=== PATIENT | male | born 1965 | race Caucasian/White ===

== ENCOUNTER 2017-08-29 07:52 | Day surgery (SDC) | payer OTHER ==
[2017-08-22 17:02] VITALS: BMI 27.7
[2017-08-29] MEDS ORDERED: PROPOFOL 20 ML ONE ×2 (08:11)
[2017-08-29] MEDS ORDERED: LIDOCAINE HCL/PF 2% SDV 5ML VIAL ONE (08:12)
[2017-08-29 09:35] VITALS: TEMP 97.9
[2017-08-29 10:08] VITALS: BP 127/89; PULSE 66
== END 2017-08-29 10:00 | disposition home or self-care (01) ==
LOC: FASU-ENDO 07:52
PROVIDERS: ATTEND Internal Medicine Gastroenterology
PROC: 0DJD8ZZ Inspection of Lower Intestinal Tract, Via Natural or Artificial Opening Endoscopic (ICD-10-PCS; principal; 2017-08-29 09:05)
DX: F12.11 Cannabis abuse, in remission (principal); K57.30 Diverticulosis of large intestine without perforation or abscess without bleeding